=== PATIENT | female | born 1990 | race Caucasian/White ===

== ENCOUNTER 2017-08-26 20:00 | Emergency (ER) | payer OTHER ==
[~2017-08-26] VITALS: Ht 162.6 cm; Wt 74.8 kg
[2017-08-27] MEDS ORDERED: CIPRO500 MG PO (04:55)
[2017-08-27] MEDS ORDERED: KETO10TA2 PO (04:55)
== END 2017-08-27 04:50 ==
LOC: ER 20:00
DX: N39.0 Urinary tract infection, site not specified (principal); N83.292 Other ovarian cyst, left side